=== PATIENT | male | born 1990 | race Caucasian/White ===

== ENCOUNTER 2018-07-18 20:00 | Emergency (ER) | payer SELFPAY ==
[~2018-07-18] VITALS: Ht 175.3 cm; Wt 63.5 kg
[2018-07-19] MEDS ORDERED: Naprosyn500 MG PO (01:16)
== END 2018-07-18 20:23 | disposition left against medical advice (07) ==
LOC: ER 20:00
DX: M79.602 Pain in left arm (principal); Z53.20 Procedure and treatment not carried out because of patient's decision for unspecified reasons
CPT/HCPCS: 99282

== ENCOUNTER 2018-07-18 23:47 | Emergency (ER) | payer MEDICAID ==
[~2018-07-18] VITALS: Ht 175.3 cm; Wt 61.2 kg
[2018-07-19] MEDS ORDERED: Naprosyn500 MG PO (01:16)
== END 2018-07-19 01:25 | disposition home or self-care (01) ==
LOC: ER 23:47
DX: S62.015A Nondisplaced fracture of distal pole of navicular [scaphoid] bone of left wrist, initial encounter for closed fracture (principal); S00.511A Abrasion of lip, initial encounter; V00.131A Fall from skateboard, initial encounter; F17.210 Nicotine dependence, cigarettes, uncomplicated
CPT/HCPCS: 29125; 73100; 99283-25